=== PATIENT | male | born 1980 | race Caucasian/White ===

== ENCOUNTER → 2019-08-14 | Outpatient (CLI) | payer OTHER | LOC: ULTRA 14:41 | DX: R22.31 Localized swelling, mass and lump, right upper limb (principal) ==

== ENCOUNTER → 2019-08-23 | Outpatient (CLI) | payer OTHER | LOC: MRI 12:31 | DX: R22.31 Localized swelling, mass and lump, right upper limb (principal) ==

== ENCOUNTER → 2019-08-24 | Outpatient (CLI) | payer OTHER | LOC: CAT 09:03 | DX: J34.2 Deviated nasal septum (principal); J32.1 Chronic frontal sinusitis ==

== ENCOUNTER → 2019-08-28 | Outpatient (CLI) | payer OTHER ==
--- NOTE | 2019-09-04 10:07 | PATH ---
[facility] [address] [place] [address] PATHOLOGY RPT PROCEDURE Name: ROD SIERRA Room #: REG PRACHI He.Adolfo.#: [id number] Admission: 08/28/19 Date of : 84 Discharge: Report #: [id number] Path Case #: [id number] Note [facility] Accession Number: [id number] TESTS RESULT FLAG UNITS REF RANGE LAB Clinician Provided Cytology Information No. of containers..01 Other (Miscellaneous) Source: LUMP ON LAT ARM FLUI DIAGNOSIS: LUMP ON LAT ARM FLUI NEGATIVE FOR MALIGNANT EPITHELIAL CELLS. BENIGN CYST FLUID. PREDOMINANTLY ACUTE INFLAMMATORY CELLS. Signed out by: 02 Karena Willams MD, Pathologist NPI- [id number] Performed by: Anu Montaño Nutrition Technician ([facility]) Gross description: 01 1 ML, RED, N/A /LCS 10/02/1840 0000 Local FLAG LEGEND: L-Low Normal,H-High Normal,LL-Alert Low,HH-Alert High <-Panic Low,>-Panic High,A-Abnormal,AA-Critical Abnormal Performed at: [address] [place] [address] Abhijeet Bah MD, [address] [address] Karena Willams MD, Specimen Comment: A courtesy copy of this report has been sent to [phone] Specimen Comment: Report sent to Specimen Comment: A duplicate report has been generated due to demographic updates. Performed at: [address], [place], [place] [id number] MD Abhijeet Bah MD Phone: [phone]
== END | disposition home or self-care (01) ==
LOC: ULTRA 13:13
DX: R22.31 Localized swelling, mass and lump, right upper limb (principal); M79.89 Other specified soft tissue disorders

== ENCOUNTER 2019-09-20 08:05 | Day surgery (SDC) | payer OTHER ==
[~2019-09-20] VITALS: Ht 162.6 cm; Wt 59.3 kg
[2019-09-20 08:54] VITALS: BP 117/74
[2019-09-20] MEDS ORDERED: OXYCODONE HCL 55 MG PO (12:21)
[2019-09-20] MEDS ORDERED: IBUPROFEN 200200 M1 PO (12:21)
[2019-09-20] MEDS ORDERED: ACETAMINOPHEN325 M1 PO (12:21)
[2019-09-20] MEDS ORDERED: MIRALAX17 GM PO (12:22)
[2019-09-20] MEDS ORDERED: COLACE 100 MG100 MG PO (12:22)
[2019-09-20 12:37] VITALS: BP 117/74
--- NOTE | 2019-09-24 15:06 | PATH ---
[facility] [address] [place] [address] PATHOLOGY RPT PROCEDURE Name: ROD SIERRA Room #: DEP [facility] M.R.#: [id number] Admission: 09/20/19 Date of : 84 Discharge: 09/20/19 Report #: [id number] Path Case #: [id number] [facility] Accession Number: [id number] . 01 Material submitted: . arm - RIGHT UPPER ARM MASS. Modifiers: right, upper . 01 Clinical history: . MASS RIGHT ARM . 02 Diagnosis: Right upper arm mass: - Benign fibromuscular/skeletal muscle tissue with abscess, fibrosis and foreign body type granulomatous response. . (OC:aster; 09/24/2019) QMS 09/24/2019 1259 Local . 02 Electronically signed: . Braxton Guillen MD, Pathologist NPI- [id number] . 01 Gross description: . Received in formalin labeled "Rod Sierra, right upper arm mass," is an irregular, elongate segment of dusky rae-brown fibrous tissue measuring 3.0 x 1.3 x 0.9 cm in greatest dimensions. Skin is not identified grossly. The specimen is inked black and serially sectioned to reveal a previously ruptured possible cystic structure partially filled with pastel orange-yellow material and measuring up to 0.8 cm on cut surface. The remaining cut surfaces are firm and rae-color[place] in appearance. Driveway Sealer sections are submitted in cassette A1. (DAC; 09/21/2019) XDC/XDC 09/21/2019 0928 Local . 02 Pathologist provided ICD-10: L02.413 . 02 CPT . 957568 Specimen Comment: A courtesy copy of this report has been sent to [phone] Specimen Comment: [phone] Specimen Comment: Report sent to and Performed at: [address] [id number] MD Abhijeet Bah MD Phone: [phone] [address] [address] PATHOLOGY RPT PROCEDURE Name: ROD SIERRA Room #: DEP [facility] Ana#: [id number] Admission: 09/20/19 Date of : 84 Discharge: 09/20/19 Report #: [id number] Path Case #: [id number] Performed at: 02 [facility] [address], [place], [place] [id number] MD Braxton Guillen MD Phone: [phone]
--- NOTE | 2019-09-25 10:32 | O ---
[facility] [place] [address] OPERATIVE REPORT Name: ROD SIERRA Room #: DEP [facility] MJeromy.#: [id number] Admission: 09/20/19 Attend Phys: Jericho Staples MD Discharge: 09/20/19 Date of : 84 Report #: [id number] THIS REPORT FOR: //name// CC: Jericho Arora DATE OF SERVICE: 09/20/2019 PROCEDURE PERFORMED: Excision of right arm mass, intramuscular. PREPROCEDURAL DIAGNOSIS: Intramuscular right arm mass. POSTPROCEDURAL DIAGNOSIS: Intramuscular right arm mass. SURGEON: Dr. Staples. DOOR WORKER: None. ANESTHESIA: 1. MAC. 2. Local. ESTIMATED BLOOD LOSS: Less than 5 mL. URINE OUTPUT: Not measured. COMPLICATIONS: None. SPECIMENS: Right arm mass. INDICATIONS: The patient a very pleasant 38-year-old gentleman who presented with right arm mass. This is painful and concerning to him. He requested this be removed. By the time I saw him in the preoperative area from when I saw him in clinic, the arm mass had decreased in size. I did discuss nonoperative management of this with him; however, he was adamant about having it excised. The risks, benefits and alternatives of the procedure were discussed with the patient. The risks discussed included but were not limited to the risk of bleeding, infection, damage to the muscle causing weakness or immobility of his right arm, damage to the surrounding anatomy including blood vessels or nerves causing weakness or ischemia to his arm, postoperative pain, postoperative wound infection, anesthesia (cardiac, pulmonary, neurologic type complications). DESCRIPTION OF PROCEDURE: After informed consent was obtained, the patient was taken to the operating room and placed in supine position. Sedative anesthesia was induced. He was then transferred to the left lateral decubitus position. [address] [address] OPERATIVE REPORT Name: ROD SIERRA Room #: DEP [facility] Ana#: [id number] Admission: 09/20/19 Attend Phys: Jericho Staples MD Discharge: 09/20/19 Date of : 84 Report #: [id number] His right upper extremity was prepped and draped in a circumferential standard fashion. The timeout was performed. Ultrasound was used to identify the exact position of the mass. A 2 cm incision was made overlying the mass. The incision was carried down through the skin and subcutaneous tissue using electrocautery and careful dissection. The incision was carried deep to the fascia into the muscle. The muscle was bluntly . This revealed the mass underlying it. The mass was grasped and dissected out circumferentially, being extremely cautious not to damage any surrounding structures or nerves. The mass was completely excised in its entirety. The end of the mass was ligated with an 0 Vicryl suture stick tie. The mass was passed off the field and sent to pathology. Hemostasis was achieved. The fascia was reapproximated using 3-0 Vicryl. Hemostasis was present. The deep dermal layer was closed using 3-0 Vicryl in an interrupted deep dermis fashion. The skin was closed using 3-0 Monocryl in an interrupted deep dermal fashion. The skin was cleaned and dried and Dermabond was applied. The patient tolerated the procedure well. There were no adverse events post-procedure. <ELECTRONICALLY SIGNED> By: Jericho Staples MD 09/25/19 1032 1812 1823 Jericho Staples MD /nt
== END 2019-09-20 12:55 | disposition home or self-care (01) ==
LOC: OR 08:05 → TBA 08:06 → OR 08:16
DX: M79.89 Other specified soft tissue disorders (principal); L02.413 Cutaneous abscess of right upper limb; L92.8 Other granulomatous disorders of the skin and subcutaneous tissue; L90.5 Scar conditions and fibrosis of skin; Z79.899 Other long term (current) drug therapy; Z98.890 Other specified postprocedural states
CPT/HCPCS: 50010; 50101; 50386; 54118; 56524; 56527; 57091; 62110; 62850; 70005